=== PATIENT | female | born 1975 | race Caucasian/White ===

== ENCOUNTER 2017-07-07 13:39 | Emergency (ER) | payer MEDICAID, OTHER ==
[2017-07-07 14:11] VITALS: BP 128/84; PULSE 92; RESP 18; TEMP 98.6; O2SAT 99; BMI 25.1
[2017-07-07 14:44] LABS: URINE BILIRUBIN NEGATIVE (NEGATIVE); URINE BLOOD LARGE (NEGATIVE); URINE GLUCOSE (UA) NEGATIVE (NEGATIVE); URINE LEUKOCYTE ESTERASE NEGATIVE Leu/uL (NEGATIVE); URINE PROTEIN 30 mg/dL (<30 mg/dL); URINE UROBILINOGEN 0.2 E.U./dL (<1 E.U./dL)
[2017-07-07 14:46] LABS: URINE APPEARANCE SL CLOUDY (CLEAR); URINE COLOR YELLOW (YELLOW)
[2017-07-07 14:52] LABS: HCG,QUALITATIVE URINE POSITIVE (NEGATIVE); URINE BACTERIA MOD (NEG); URINE RBC 20 - 25 /hpf (0-2)
[2017-07-07 14:56] LABS: BASO # 0.02 K/mm3 (0.0-2.0); BASO % 0.2 % (0.0-3.0); EOS # 0.1 (0.0-0.7); EOS % 0.7 % (1.5-5.0); GRAN # 6.3 (1.4-6.5); GRAN % 69.6 % (50.0-68.0); LYMPH # 2.2 (1.2-3.4); LYMPH % 24.4 % (22.0-35.0); MEAN CELL VOLUME 87.2 fl (80.0-105.0); MEAN CORPUSCULAR HEMOGLOBIN 29.3 pg (25.0-35.0); MEAN CORPUSCULAR HGB CONC 33.5 g/dl (31.0-37.0); MEAN PLATELET VOLUME 11.7 fl (7.0-11.0); MONO # 0.5 (0.1-0.6); MONO % 5.1 % (1.0-6.0); RBC 3.76 10^6/uL (3.5-6.1); RED CELL DISTRIBUTION WIDTH 16.3 % (11.5-14.5); WHITE BLOOD COUNT 9.1 10^3/ul (4.5-11.0)
[2017-07-07 15:10] LABS: ALB/GLOB RATIO 1.3 (1.1-1.8); ALBUMIN 4.7 g/dL (3.0-4.8); ALT/SGPT 22 U/L (7-56); AST/SGOT 20 U/L (14-36); BLOOD UREA NITROGEN 14 mg/dL (7-21); CALCIUM 9.8 mg/dL (8.4-10.5); GFR AFRICAN-AMERICAN > 60; GFR NON-AFRICAN AMERICAN > 60
--- NOTE | 2017-07-07 15:25 | ED PDOC ---
Arrival/HPI - General Chief Complaint: Female Genitourinary Time Seen by Provider: 07/07/17 14:22 Historian: Patient - History of Present Illness Narrative History of Present Illness (Text): 07/07/17 15:22 42yr old female A3 presents today with lower abdominal cramping and vaginal spotting x 2 days. pt states she has + test at home 1 month ago. pt states she has f/u with CLINICAL EDITOR on 07/11/17. pt states she noticed a brownish discharge when she wipes. pt c/o slight lower abdominal cramping which she describes "like period cramps" pt denies back pain, denies urinary symptoms. no cp or sob. no vomiting/diarrhea. no nausea. no other complaints. Time/Duration: Other (2 days) Symptom Onset: Gradual Symptom Course: Unchanged Quality: Cramping Severity Level: 2 Past Medical History - Provider Review Nursing Documentation Reviewed: Yes - Travel History Have you recently traveled outside [place] w/in the past 3 mons?: No - Infectious Disease Hx of Infectious Diseases: None - Reproductive Menopause: No - Past Medical History Past Medical History: No Previous - Psychiatric Hx Depression: No Hx Emotional Abuse: No Hx Physical Abuse: No Hx Substance Use: No (CANNABIS QUIT) - Surgical History Hx Orthopedic Surgery: Yes (L HAND) - Anesthesia Hx Anesthesia: No Hx Anesthesia Reactions: No Hx Malignant Hyperthermia: No - Suicidal Assessment Feels Threatened In Home Enviroment: No Family/Social History - Physician Review Nursing Documentation Reviewed: Yes Family/Social History: Unknown Family HX Smoking Status: Current Some Days Smoker Hx Alcohol Use: No Hx Substance Use: No (CANNABIS QUIT) Allergies/Home Meds Allergies/Adverse Reactions: Allergies No Known Allergies Allergy (Verified 03/25/13 15:51) Review of Systems - Review of Systems Constitutional: absent: Fatigue, Fevers Respiratory: absent: SOB, Cough Cardiovascular: absent: Chest Pain, Palpitations Gastrointestinal: Abdominal Pain. absent: Constipation, Diarrhea, Nausea, Vomiting Genitourinary Female: Vaginal Bleeding. absent: Dysuria, Frequency, Hematuria, Vaginal Discharge Musculoskeletal: absent: Arthralgias, Back Pain, Neck Pain Skin: absent: Rash, Pruritis Neurological: absent: Headache, Dizziness Psychiatric: absent: Anxiety, Depression Physical Exam Vital Signs Reviewed: Yes Vital Signs Temp Pulse Resp BP Pulse Ox 07/07/17 14:02 98.6 F 92 H 18 128/84 99 07/07/17 13:39 98.6 F 92 H 18 128/84 99 Temperature: Afebrile Blood Pressure: Normal Pulse: Regular Respiratory Rate: Normal Appearance: Positive for: Well-Appearing, Non-Toxic, Comfortable Pain Distress: None Mental Status: Positive for: Alert and Oriented X 3 - Systems Exam Head: Present: Atraumatic Mouth: Present: Moist Mucous Membranes Neck: Present: Normal Range of Motion Respiratory/Chest: Present: Clear to Auscultation, Good Air Exchange. No: Respiratory Distress, Accessory Muscle Use Cardiovascular: Present: Regular Rate and Rhythm, Normal S1, S2. No: Murmurs Abdomen: Present: Normal Bowel Sounds. No: Tenderness, Distention, Peritoneal Signs, Rebound, Guarding Genitourinary/Pelvic Exam: Present: Normal External Genitalia, Vaginal Bleeding (minimal brown discharge noted), Cervical os Closed, Other (chaparoned by ER MALIK mcgregor). No: Vaginal Discharge, Vaginal Lesions, Adenexal Tenderness, Adenexal Mass, Cervical Motion Tendernes Back: Present: Normal Inspection. No: CVA Tenderness, Midline Tenderness, Paraspinal Tenderness Upper Extremity: Present: Normal ROM Lower Extremity: Present: Normal ROM. No: Edema Neurological: Present: GCS=15, Speech Normal Skin: Present: Warm, Dry, Normal Color. No: Rashes Psychiatric: Present: Alert, Oriented x 3 Medical Decision Making ED Course and Treatment: 07/07/17 15:25 Patient is nontoxic well appearing in no distress. vital signs are stable. CBC: wnl CMP: k;3.5 Beta hC TYPE AND SCREEN: AB+ Urinalysis: + blood Ultrasound:FINDINGS: UTERUS: Measures 8.7 x 4.8 x 6.2 cm. Normal in size and appearance. No fibroid or other mass lesion seen. ENDOMETRIUM: Funmi there is intrauterine gestational sac measures 2.55 x 1.4 x 2.9 centimeter corresponding to gestational age of 6 weeks 6 days. There is a pole noted with CLL measures 0.85 centimeter corresponding to gestational age of 6 weeks 6 days. No heart activity appreciated in this study. CERVIX: No cervical abnormality identified. RIGHT OVARY: Measures 3 x 1.6 x 1.45 cm. No solid mass. Normal flow. LEFT OVARY: Measures 2.5 x 1.6 x 1.7 cm. No solid mass. Normal flow. FREE FLUID: No significant free fluid noted. OTHER FINDINGS: None. IMPRESSION: Intrauterine gestational sac contains pole. No heart activity is appreciated in this study. The ultrasound estimated gestational age is 7 weeks 1 day 0 weeks 3 days. Correlation with beta HCG level is suggested. Discussed all the results the patient. pt states she has appointment with ob/ parcel carrier on july 11 in 4 days. advised patient of no heart beat on US. stressed importance of f/u with parcel carrier and repeat beta hcg in 2 days. advised f/u with the parcel carrier within the next 2 days. advised immediate return if symptoms worsen,persist or if new symptoms develop. Patient verbalizes understanding of discharge instructions and need for immediate followup. all aspects of this case were discussed the attending of record. Impression:threatened Tylenol every 4 hours as needed for pain Increase fluids Followup with the technologies division chair within the next 2 days Return immediately if symptoms worsen persist or if new symptoms develop: High fevers, heavy bleeding, severe abdominal pain, vomiting, diarrhea, dizziness or weakness or any other concerning symptoms develop. Repeat Beta HCG in 2 days. - Lab Interpretations Lab Results: 07/07/17 14:35 07/07/17 14:35 Lab Results 07/07/17 14:35: WBC 9.1, RBC 3.76, Hgb 11.0 L, Hct 32.8 L, MCV 87.2, MCH 29.3, MCHC 33.5, RDW 16.3 H, Plt Count 230, MPV 11.7 H, Gran % 69.6 H, Lymph % (Auto) 24.4, [place] % (Auto) 5.1, Eos % (Auto) 0.7 L, Baso % (Auto) 0.2, Gran # 6.30, Lymph # (Auto) 2.2, Norman # (Auto) 0.5, Eos # (Auto) 0.1, Baso # (Auto) 0.02 07/07/17 14:35: Blood Type AB POSITIVE, Antibody Screen Negative, BBK History Checked Patient has bt 07/07/17 14:35: Beta HCG, Quant 6742.60 H 07/07/17 14:35: Sodium 143, Potassium 3.5 L, Chloride 108 H, Carbon Dioxide 21, Anion Gap 17, BUN 14, Creatinine 0.5 L, Est GFR ( Amer) > 60, Est GFR ( Non-Af Amer) > 60, Random Glucose 73, Calcium 9.8, Total Bilirubin 0.7, AST 20, ALT 22, Alkaline Phosphatase 61, Total Protein 8.2, Albumin 4.7, Globulin 3.5, Albumin/Globulin Ratio 1.3 07/07/17 14:30: Urine Color Yellow, Urine Appearance Sl cloudy, Urine pH 6.0, Ur Specific [place] >= 1.030, Urine Protein 30 H, Urine Glucose (UA) Negative, Urine Ketones 15 H, Urine Blood Large H, Urine Nitrate Negative, Urine Bilirubin Negative, Urine Urobilinogen 0.2, Ur Leukocyte Esterase Negative, Urine RBC 20 - 25, Urine WBC 10 - 15, Ur Epithelial Cells 10 - 12, Urine Bacteria Mod, Urine HCG, Qual Positive - RAD Interpretation Radiology Orders: 07/07/17 14:22 OB TRANSVAGINAL [US] Stat Disposition/Present on Arrival - Present on Arrival Any Indicators Present on Arrival: No History of DVT/PE: No History of Uncontrolled Diabetes: No Urinary Catheter: No History of Decub. Ulcer: No History Surgical Site Infection Following: None - Disposition Have Diagnosis and Disposition been Completed?: Yes Diagnosis: Threatened Disposition: HOME/ ROUTINE Disposition Time: 16:33 Patient Plan: Discharge Condition: GOOD Discharge Instructions (ExitCare): Threatened Miscarriage (DC) Additional Instructions: Tylenol every 4 hours as needed for pain Increase fluids Followup with the technologies division chair within the next 2 days Return immediately if symptoms worsen persist or if new symptoms develop: High fevers, heavy bleeding, severe abdominal pain, vomiting, diarrhea, dizziness or weakness or any other concerning symptoms develop. Repeat Beta HCG in 2 days. Prescriptions: Multivit/Folic Acid/I [ Plus] 1 tab PO DAILY #30 tab Referrals: Ana Maria Avalos MD [Staff Provider] - [facility] - Follow up with primary Forms: [place] ([place]), WORK NOTE
--- NOTE | 2017-07-07 16:33 | US ---
HISTORY: pain. Vaginal spotting COMPARISON: No related prior exam available for comparison. The patient has ultrasound in previous dated 03/25/2013 TECHNIQUE: Transabdominal and endovaginal ultrasound examination of the pelvis was performed. FINDINGS: UTERUS: Measures 8.7 x 4.8 x 6.2 cm. Normal in size and appearance. No fibroid or other mass lesion seen. ENDOMETRIUM: Funmi there is intrauterine gestational sac measures 2.55 x 1.4 x 2.9 centimeter corresponding to gestational age of 6 weeks 6 days. There is a pole noted with CLL measures 0.85 centimeter corresponding to gestational age of 6 weeks 6 days. No heart activity appreciated in this study. CERVIX: No cervical abnormality identified. RIGHT OVARY: Measures 3 x 1.6 x 1.45 cm. No solid mass. Normal flow. LEFT OVARY: Measures 2.5 x 1.6 x 1.7 cm. No solid mass. Normal flow. FREE FLUID: No significant free fluid noted. OTHER FINDINGS: None. IMPRESSION: Intrauterine gestational sac contains pole. No heart activity is appreciated in this study. The ultrasound estimated gestational age is 7 weeks 1 day 0 weeks 3 days. Correlation with beta HCG level is suggested.
== END 2017-07-07 16:33 | disposition home or self-care (01) ==
LOC: ED 13:39
DX: O20.0 Threatened abortion (principal); Z3A.01 Less than 8 weeks gestation of pregnancy

== ENCOUNTER 2017-07-14 20:44 | Emergency (ER) | payer MEDICAID ==
[2017-07-14 20:45] VITALS: BMI 25.1
--- NOTE | 2017-07-14 20:51 | ED PDOC ---
Arrival/HPI <Kodak Villalba - Last Filed: 07/15/17 01:30> - General Historian: Patient <Price Marvin - Last Filed: 07/15/17 01:45> - General Time Seen by Provider: 07/14/17 20:45 - History of Present Illness Narrative History of Present Illness (Text): 07/14/17 20:49 42 y/o female, , approx. 7 weeks ?, c/o passing a clot of tissue with lower pelvic cramp x 1 day. Pt. stated that she's been told that she had miscarriage on 07/07/2017 approx. 7 weeks, been having cramp at home and passing the tissue tonight, no fever or chills, no urinary symptoms, no night sweat, no active bleeding currently, no other medical or psychological complaints. (Price Marvin) Past Medical History - Provider Review Nursing Documentation Reviewed: Yes - Infectious Disease Hx of Infectious Diseases: None - Past Medical History Past Medical History: No Previous - Psychiatric Hx Depression: No Hx Emotional Abuse: No Hx Physical Abuse: No Hx Substance Use: No (CANNABIS QUIT) - Surgical History Hx Orthopedic Surgery: Yes (L HAND) - Anesthesia Hx Anesthesia: No Hx Anesthesia Reactions: No Hx Malignant Hyperthermia: No - Suicidal Assessment Feels Threatened In Home Enviroment: No <Price Marvin - Last Filed: 07/15/17 01:45> Family/Social History - Physician Review Nursing Documentation Reviewed: Yes Family/Social History: Unknown Family HX Smoking Status: Current Some Days Smoker Hx Alcohol Use: No Hx Substance Use: No (CANNABIS QUIT) <Price Marvin - Last Filed: 07/15/17 01:45> Allergies/Home Meds <Kodak Villalba - Last Filed: 07/15/17 01:30> <Price Marvin - Last Filed: 07/15/17 01:45> Allergies/Adverse Reactions: Allergies No Known Allergies Allergy (Verified 03/25/13 15:51) Review of Systems - Review of Systems Constitutional: absent: Fatigue, Fevers Eyes: absent: Vision Changes ENT: absent: Hearing Changes Respiratory: absent: SOB, Cough Cardiovascular: absent: Chest Pain Gastrointestinal: absent: Abdominal Pain, Nausea, Vomiting Genitourinary Female: Vaginal Bleeding. absent: Dysuria, Frequency, Hematuria, Urine Output Changes, Vaginal Discharge Musculoskeletal: absent: Arthralgias, Back Pain Skin: absent: Rash, Pruritis, Skin Lesions Neurological: absent: Headache, Dizziness Hemo/Lymphatic: absent: Adenopathy Psychiatric: absent: Anxiety, Depression, Suicidal Ideation <Price Marvin - Last Filed: 07/15/17 01:45> Physical Exam Pain Distress: Mild - Systems Exam Head: Present: Atraumatic, Normocephalic Pupils: Present: PERRL Extroacular Muscles: Present: EOMI Conjunctiva: Present: Normal Mouth: Present: Moist Mucous Membranes Neck: Present: Normal Range of Motion Respiratory/Chest: Present: Clear to Auscultation, Good Air Exchange. No: Respiratory Distress, Accessory Muscle Use Cardiovascular: Present: Regular Rate and Rhythm, Normal S1, S2. No: Murmurs Abdomen: Present: Normal Bowel Sounds. No: Tenderness, Distention, Peritoneal Signs, Rebound, Guarding Genitourinary/Pelvic Exam: Present: Normal External Genitalia, Cervical os Closed, Other (Female Data Integrity Consultant: ER Staff Aleyda Grady. ). No: Vaginal Discharge, Vaginal Bleeding, Vaginal Lesions, Adenexal Tenderness, Adenexal Mass , Cervical Motion Tendernes, Odor Back: Present: Normal Inspection Upper Extremity: Present: Normal Inspection. No: Cyanosis, Edema Lower Extremity: Present: Normal Inspection. No: Edema Neurological: Present: GCS=15, CN II-XII Intact, Speech Normal, Motor Func Grossly Intact, Gait Normal, Memory Normal Skin: Present: Warm, Dry, Normal Color. No: Rashes Psychiatric: Present: Alert, Oriented x 3, Normal Insight, Normal Concentration <Price Marvin - Last Filed: 07/15/17 01:45> Vital Signs Temp Pulse Resp BP Pulse Ox 07/14/17 21:30 98.4 F 59 L 18 119/78 100 Medical Decision Making <Kodak Villalba - Last Filed: 07/15/17 01:30> - RAD Interpretation Heel Scorer: Radiologist <Price Marvin - Last Filed: 07/15/17 01:45> ED Course and Treatment: 07/14/17 21:54 -labs/ua/type and screen/betahcg -transvaginal sonogram -IVF/tylenol -observe and reassess 07/15/17 01:44 -Urine hcg is positive -Sonogram show: Findings compatible with spontaneous . Thickened, heterogeneous endometrium. RPOC not excluded. Ovarian cysts. -Blood type is AB+ -Labs are non-significant except hgb 9.8 -Beta hcg 657 from 6742 -UA show +UTI, macrobid ordered. -Pt. has obgyn to follow up today for follow up, case discussed with dr. villalba about the labs/radiology result and agreed on the discharge and follow up with obgyn today. -Pt. feels well, asymptomatic, no active bleeding or pain. -Discharge home with tylenol, macrobid, bed rest, follow up with the obgyn today as you scheduled, return to the ER for any new or worsening signs or symptoms. (Price Marvin) - Lab Interpretations Lab Results: 07/14/17 22:45 Lab Results 07/15/17 00:35: Beta HCG, Quant 657.94 H 07/14/17 23:05: Urine Color Yellow, Urine Appearance Cloudy, Urine pH 6.5, Ur Specific [place] 1.025, Urine Protein 30 H, Urine Glucose (UA) Negative, Urine Ketones Trace H, Urine Blood Large H, Urine Nitrate Negative, Urine Bilirubin Negative, Urine Urobilinogen 1.0 H, Ur Leukocyte Esterase Trace H, Urine RBC Tntc, Urine WBC 1 - 3, Ur Epithelial Cells 0 - 2, Urine Bacteria Rare 07/14/17 22:45: WBC 8.9, RBC 3.39 L, Hgb 9.8 L, Hct 30.0 L, MCV 88.5, MCH 28.9, MCHC 32.7, RDW 16.5 H, Plt Count 196, MPV 12.3 H, Gran % 42.3 L, Lymph % (Auto) 50.1 H, [place] % (Auto) 5.5, Eos % (Auto) 1.9, Baso % (Auto) 0.2, Gran # 3.78, Lymph # (Auto) 4.5 H, [place] # (Auto) 0.5, Eos # (Auto) 0.2, Baso # (Auto) 0.02 - RAD Interpretation Radiology Orders: 07/14/17 21:49 OB TRANSVAGINAL [US] Stat Gestation: No intrauterine gestational sac. Uterus/cervix: Endometrium: Up to 2.0 cm in thickness, heterogeneous without internal vascularity. Closed cervix. Ovaries: RIGHT ovary: 1.2 x 1.1 x 0.8 cm anechoic lesion. LEFT ovary: 1.8 x 1.3 x 1.7 cm anechoic lesion. No adnexal masses. Free fluid: No significant free fluid. IMPRESSION: 1. Findings compatible with spontaneous . 2. Thickened, heterogeneous endometrium. RPOC not excluded. 3. Ovarian cysts. Thank you for allowing us to participate in the care of your patient. Dictated and Authenticated by: Nicolás Santana MD 07/15/2017 12:06 AM Eastern Time ([place] & [place]) (Price Marvin) - Medication Orders Current Medication Orders: Discontinued Medications Acetaminophen (Tylenol 325mg Tab) 650 mg PO STAT STA Stop: 07/14/17 21:50 Last Admin: 07/14/17 23:00 Dose: 650 mg Sodium Chloride (Sodium Chloride 0.9%) 1,000 mls @ 999 mls/hr IV .Q1H1M STA Stop: 07/14/17 22:49 Last Admin: 07/14/17 22:58 Dose: 999 mls/hr eMAR Start Stop Document 07/14/17 22:58 GMD (Rec: 07/14/17 23:00 GMD [id number]) Intravenous Solution Start Date 07/14/17 Start Time 23:00 End Date 07/15/17 End time 00:00 Total Infusion Time 60 Nitrofurantoin Macrocrystals (Macrobid) 100 mg PO STAT STA PRN Reason: Protocol Stop: 07/15/17 00:33 - PA / STERILIZER MACHINE OPERATOR / Resident Statement LUDWIG has reviewed & agrees with the documentation as recorded. <Kodak Villalba - Last Filed: 07/15/17 01:30> - PA / STERILIZER MACHINE OPERATOR / Resident Statement LUDWIG has reviewed & agrees with the documentation as recorded. <Price Marvin - Last Filed: 07/15/17 01:45> Disposition/Present on Arrival <Kodak Villalba - Last Filed: 07/15/17 01:30> - Present on Arrival Any Indicators Present on Arrival: No History of DVT/PE: No History of Uncontrolled Diabetes: No Urinary Catheter: No History of Decub. Ulcer: No History Surgical Site Infection Following: None - Disposition Have Diagnosis and Disposition been Completed?: Yes Disposition Time: 00:28 Patient Plan: Discharge <Price Marvin - Last Filed: 07/15/17 01:45> - Disposition Diagnosis: Miscarriage, UTI (urinary tract infection) Disposition: HOME/ ROUTINE Patient Problems: Current Active Problems Problem Status Onset Miscarriage Acute UTI (urinary tract infection) Acute Condition: GOOD Additional Instructions: -Discharge home with tylenol, macrobid, bed rest, follow up with the obgyn today as you scheduled, return to the ER for any new or worsening signs or symptoms. . Prescriptions: Acetaminophen [Tylenol 325mg tab] 2 tab PO QID PRN #30 tab PRN Reason: Other Nitrofurantoin Macrocrystals [Macrobid] 100 mg PO BID #14 cap Referrals: Juan Diego Morris, [Primary Care Provider] - Follow up with primary King Jones [Medical Doctor] - Follow up with primary Forms: WORK NOTE
[2017-07-14 22:57] VITALS: RESP 18
[2017-07-14] MEDS: Sodium Chloride 0.9% 1,000 ML IV STA (22:58)
[2017-07-14 23:30] LABS: BASO # 0.02 K/mm3 (0.0-2.0); BASO % 0.2 % (0.0-3.0); EOS # 0.2 (0.0-0.7); EOS % 1.9 % (1.5-5.0); GRAN # 3.78 (1.4-6.5); GRAN % 42.3 % (50.0-68.0); HEMOGLOBIN 9.8 g/dL (12.0-16.0); LYMPH # 4.5 (1.2-3.4); LYMPH % 50.1 % (22.0-35.0); MEAN CELL VOLUME 88.5 fl (80.0-105.0); MEAN CORPUSCULAR HEMOGLOBIN 28.9 pg (25.0-35.0); MEAN CORPUSCULAR HGB CONC 32.7 g/dl (31.0-37.0); MEAN PLATELET VOLUME 12.3 fl (7.0-11.0); MONO # 0.5 (0.1-0.6); MONO % 5.5 % (1.0-6.0); RBC 3.39 10^6/uL (3.5-6.1); RED CELL DISTRIBUTION WIDTH 16.5 % (11.5-14.5); WHITE BLOOD COUNT 8.9 10^3/ul (4.5-11.0)
[2017-07-14 23:32] LABS: PH,URINE 6.5 (4.7-8.0); URINE BILIRUBIN NEGATIVE (NEGATIVE); URINE BLOOD LARGE (NEGATIVE); URINE GLUCOSE (UA) NEGATIVE (NEGATIVE); URINE LEUKOCYTE ESTERASE TRACE Leu/uL (NEGATIVE); URINE PROTEIN 30 mg/dL (<30 mg/dL)
[2017-07-14 23:34] LABS: URINE APPEARANCE CLOUDY (CLEAR); URINE COLOR YELLOW (YELLOW)
[2017-07-14 23:42] LABS: URINE BACTERIA RARE (NEG); URINE EPITHELIAL CELLS 0 - 2 /hpf (0-5); URINE RBC TNTC /hpf (0-2)
--- NOTE | 2017-07-15 00:06 | US ---
EXAM: US First Trimester, Transabdominal CLINICAL HISTORY: 42 years old, female; Pain; complicated by abdominal or pelvic pain; Lower; First trimester; Gestational age or lmp: ; ; Additional info: Complete ? TECHNIQUE: Real-time transabdominal obstetrical ultrasound of the maternal pelvis and a first trimester with image documentation. COMPARISON: No relevant prior studies available. FINDINGS: Gestation: No intrauterine gestational sac. Uterus/cervix: Endometrium: Up to 2.0 cm in thickness, heterogeneous without internal vascularity. Closed cervix. Ovaries: RIGHT ovary: 1.2 x 1.1 x 0.8 cm anechoic lesion. LEFT ovary: 1.8 x 1.3 x 1.7 cm anechoic lesion. No adnexal masses. Free fluid: No significant free fluid. IMPRESSION: 1. Findings compatible with spontaneous . 2. Thickened, heterogeneous endometrium. RPOC not excluded. 3. Ovarian cysts.
[2017-07-15 01:47] LABS: ALB/GLOB RATIO 1.2 (1.1-1.8); ALBUMIN 3.6 g/dL (3.0-4.8); ALT/SGPT 26 U/L (7-56); AST/SGOT 25 U/L (14-36); BLOOD UREA NITROGEN 13 mg/dL (7-21); GFR AFRICAN-AMERICAN > 60; GFR NON-AFRICAN AMERICAN > 60
[2017-07-15] MEDS: Sodium Chloride 0.9% 1,000 ML IV STA (02:06)
[2017-07-15 02:09] VITALS: BP 116/70; PULSE 60; TEMP 98.2; O2SAT 99
== END 2017-07-15 02:11 | disposition home or self-care (01) ==
LOC: ED 20:44
DX: O03.88 Urinary tract infection following complete or unspecified spontaneous abortion (principal)
CPT/HCPCS: 76817; 80053; 81001; 84702; 85025; 86850; 86900; 87086; 96360; 96361; 99285; J7040

== ENCOUNTER 2017-08-02 20:23 | Inpatient (IN) | payer MEDICAID ==
[2017-08-02 20:48] VITALS: BMI 26.2
--- NOTE | 2017-08-02 21:09 | ED PDOC ---
Arrival/HPI - General Historian: Patient - General Chief Complaint: Dental Pain Time Seen by Provider: 08/02/17 21:00 - History of Present Illness Narrative History of Present Illness (Text): 08/02/17 21:08 42yo female with no Past medical history who present with left sided facial swelling. Notes that she have a cracked left upper lateral incisor yesterday and started having pain to the area yesterday. Noted left sided facial swelling this afternoon, that became increasingly worse. States it became harder to open her left eye. Denied fever, chills, nausea, vomiting, visual changes, any other complaint. (Florin Sandra A) Past Medical History - Provider Review Nursing Documentation Reviewed: Yes - Infectious Disease Hx of Infectious Diseases: None - Past Medical History Past Medical History: No Previous - Cardiac Hx Cardiac Disorders: No - Pulmonary Hx Respiratory Disorders: No - Neurological Hx Neurological Disorder: No - HEENT Hx HEENT Disorder: No - Renal Hx Renal Disorder: No - Endocrine/Metabolic Hx Endocrine Disorders: No - Hematological/Oncological Hx Blood Disorders: No - Integumentary Hx Dermatological Disorder: No - Musculoskeletal/Rheumatological Hx Musculoskeletal Disorders: No - Gastrointestinal Hx Gastrointestinal Disorders: No - Genitourinary/Gynecological Hx Genitourinary Disorders: Yes Other/Comment: Miscarriage 07/14/2017 - Psychiatric Hx Depression: No Hx Emotional Abuse: No Hx Physical Abuse: No Hx Substance Use: No (CANNABIS QUIT) - Surgical History Hx Orthopedic Surgery: Yes (L HAND) - Anesthesia Hx Anesthesia: No Hx Anesthesia Reactions: No Hx Malignant Hyperthermia: No - Suicidal Assessment Feels Threatened In Home Enviroment: No Family/Social History - Physician Review Nursing Documentation Reviewed: Yes Family/Social History: Unknown Family HX Smoking Status: Current Some Days Smoker Hx Alcohol Use: No Hx Substance Use: No (CANNABIS QUIT) Allergies/Home Meds Allergies/Adverse Reactions: Allergies vancomycin Adverse Reaction (Verified 08/02/17 23:50) ITCHING Review of Systems - Physician Review All systems were reviewed & negative as marked: Yes - Review of Systems Constitutional: Normal Eyes: Normal ENT: Other (Left toothache. Left facial swelling) Respiratory: Normal Cardiovascular: Normal Gastrointestinal: Normal Genitourinary Female: Normal Musculoskeletal: Normal Skin: Normal Neurological: Normal Endocrine: Normal Hemo/Lymphatic: Normal Psychiatric: Normal Physical Exam Vital Signs Reviewed: Yes Temperature: Afebrile Blood Pressure: Normal Pulse: Regular Respiratory Rate: Normal Appearance: Positive for: Well-Appearing, Non-Toxic, Comfortable Pain Distress: None Mental Status: Positive for: Alert and Oriented X 3 - Systems Exam Head: Present: Atraumatic, Normocephalic Pupils: Present: PERRL Extroacular Muscles: Present: EOMI, Other (Left infraorbital area swelling and erythema noted) Conjunctiva: Present: Normal, Other Mouth: Present: Moist Mucous Membranes. No: Normal Teeth (Avulsed left upper lateral incisor noted with overlaying left maxillary swelling with overlaying erythema) Neck: Present: Normal Range of Motion Respiratory/Chest: Present: Clear to Auscultation, Good Air Exchange. No: Respiratory Distress, Accessory Muscle Use Cardiovascular: Present: Regular Rate and Rhythm, Normal S1, S2. No: Murmurs Abdomen: No: Tenderness, Distention, Peritoneal Signs Back: Present: Normal Inspection Upper Extremity: Present: Normal Inspection. No: Cyanosis, Edema Lower Extremity: Present: Normal Inspection. No: Edema Neurological: Present: GCS=15, CN II-XII Intact, Speech Normal Skin: Present: Warm, Dry, Normal Color. No: Rashes Psychiatric: Present: Alert, Oriented x 3, Normal Insight, Normal Concentration Vital Signs Temp Pulse Resp BP Pulse Ox 08/02/17 20:50 99.7 F H 73 18 128/88 99 Medical Decision Making ED Course and Treatment: 08/03/17 17:38 Pt presented with facial cellulites, low grade temp and leukocytosis. She was admitted for IV abx. Case was DW Dr. Cheema and she [facility] - Lab Interpretations Microbiology Results: Microbiology Results 08/02/17 21:34 Blood-Venous Blood Culture - Preliminary NO GROWTH AFTER 48 HOURS 08/02/17 21:10 Blood-Venous Blood Culture - Preliminary NO GROWTH AFTER 48 HOURS Lab Results: 08/02/17 21:34 Lab Results 08/02/17 21:34: PT 12.1, INR 1.06, APTT 21.5 L 08/02/17 21:34: WBC 11.4 H D, RBC 3.62, Hgb 10.3 L, Hct 31.7 L, MCV 87.6, MCH 28.5, MCHC 32.5, RDW 16.0 H, Plt Count 331, MPV 12.2 H, Gran % 69.4 H, Lymph % ( Auto) 22.5, [place] % (Auto) 7.6 H, Eos % (Auto) 0.3 L, Baso % (Auto) 0.2, Gran # 7.92 H, Lymph # (Auto) 2.6, [place] # (Auto) 0.9 H, Eos # (Auto) 0.0, Baso # (Auto ) 0.02 - Medication Orders Current Medication Orders: Discontinued Medications Acetaminophen (Tylenol 325mg Tab) 650 mg PO Q6H PRN PRN Reason: Pain, Mild (1-3) Diphenhydramine HCl (Benadryl) 25 mg IVP STAT STA Stop: 08/02/17 23:28 Last Admin: 08/02/17 23:49 Dose: 25 mg IVP Administration Document 08/02/17 23:49 KT (Rec: 08/02/17 23:49 KT [id number]) Charges for Administration # of IVP Administrations 1 Ceftriaxone Sodium (Rocephin 1 Gram Ivpb) 1 gm in 100 mls @ 200 mls/hr IVPB STAT STA PRN Reason: Protocol Stop: 08/02/17 22:11 Last Admin: 08/02/17 21:56 Dose: 200 mls/hr eMAR Start Stop Document 08/02/17 21:56 MS (Rec: 08/02/17 21:56 [email or web address]) Intravenous Solution Start Date 08/02/17 Start Time 21:56 End Date 08/02/17 End time 22:26 Total Infusion Time 30 Vancomycin HCl (Vancomycin 1gm) 1 gm in 250 mls @ 167 mls/hr IVPB STAT STA PRN Reason: Protocol Stop: 08/02/17 23:10 Last Admin: 08/02/17 22:44 Dose: 167 mls/hr eMAR Start Stop Document 08/02/17 22:44 MS (Rec: 08/02/17 22:44 MS [email or web address]) Intravenous Solution Start Date 08/02/17 Start Time 22:44 Ampicillin Sodium/Sulbactam (Sodium 3 gm/ Sodium Chloride) 100 mls @ 200 mls/ hr IVPB Q6 DIAMOND PRN Reason: Protocol Last Admin: 08/03/17 12:15 Dose: 200 mls/hr eMAR Start Stop Document 08/03/17 12:15 KRISTAL (Rec: 08/03/17 12:16 KRISTAL [id number]) Intravenous Solution Start Date 08/03/17 Start Time 12:16 Ibuprofen (Motrin Tab) 400 mg PO Q4H PRN PRN Reason: Pain, moderate (4-7) Last Admin: 08/03/17 13:00 Dose: 400 mg MAR Pain/Vitals Document 08/03/17 13:00 KRISTAL (Rec: 08/03/17 13:01 KRISTAL [id number] Pain Reassessment Is This A Pain ReAssessment? No Presence of Pain Presence of Pain Yes Pain Scale Used Pain Scale Used Numeric Location Left, Right or Bilateral Left Pain Location Body Site Face Description Throbbing Intensity 4 Scale Used Numeric Site Observation Swelling Ketorolac Tromethamine (Toradol) 15 mg IVP Q6H PRN PRN Reason: Pain, severe (8-10) Morphine Sulfate (Morphine) 4 mg IVP STAT STA Stop: 08/02/17 21:43 Last Admin: 08/02/17 21:55 Dose: 4 mg MAR Pain Assessment Document 08/02/17 21:55 MS (Rec: 08/02/17 21:56 MS [email or web address] Pain Reassessment Is this a pain reassessment? No Sleep Is patient sleeping during reassessment? No Presence of Pain Presence of Pain Yes Pain Scale Used Pain Scale Used Numeric Location Left, Right or Bilateral Left Pain Location Body Site Face Description Description Constant Intensity of Pain at present 10 Pain Behavior Moaning Crying Grasping Site Rubbing Site IVP Administration Document 08/02/17 21:55 MS (Rec: 08/02/17 21:56 MS [email or web address]) Charges for Administration # of IVP Administrations 1 Ondansetron HCl (Zofran Inj) 4 mg IVP Q4H PRN PRN Reason: Nausea/Vomiting Pantoprazole Sodium (Protonix Ec Tab) 20 mg PO 0600 DIAMOND Last Admin: 08/03/17 05:42 Dose: 20 mg Potassium Chloride (K-Dur 20 Meq Er Tab) 40 meq PO ONCE ONE Stop: 08/03/17 13:53 Last Admin: 08/03/17 14:17 Dose: 40 meq Disposition/Present on Arrival - Present on Arrival Any Indicators Present on Arrival: No History of DVT/PE: No History of Uncontrolled Diabetes: No Urinary Catheter: No History of Decub. Ulcer: No History Surgical Site Infection Following: None - Disposition Have Diagnosis and Disposition been Completed?: Yes Disposition Time: 22:00 - Disposition Diagnosis: Facial cellulitis Disposition: HOSPITALIZED Condition: FAIR
[2017-08-02] MEDS ORDERED: Vancomycin 1gm in NS 250ml 1 GM/250 ML BAG IVPB STA (21:41)
[2017-08-02] MEDS ORDERED: cefTRIAXone 1 gm 1 GM/100 ML BAG IVPB STA (21:42)
[2017-08-02 21:54] LABS: BASO # 0.02 K/mm3 (0.0-2.0); BASO % 0.2 % (0.0-3.0); EOS % 0.3 % (1.5-5.0); GRAN # 7.92 (1.4-6.5); GRAN % 69.4 % (50.0-68.0); HEMOGLOBIN 10.3 g/dL (12.0-16.0); LYMPH # 2.6 (1.2-3.4); LYMPH % 22.5 % (22.0-35.0); MEAN CELL VOLUME 87.6 fl (80.0-105.0); MEAN CORPUSCULAR HEMOGLOBIN 28.5 pg (25.0-35.0); MEAN CORPUSCULAR HGB CONC 32.5 g/dl (31.0-37.0); MEAN PLATELET VOLUME 12.2 fl (7.0-11.0); MONO # 0.9 (0.1-0.6); MONO % 7.6 % (1.0-6.0); RBC 3.62 10^6/uL (3.5-6.1); WHITE BLOOD COUNT 11.4 10^3/ul (4.5-11.0)
[2017-08-02 22:00] LABS: INR 1.06 (0.93-1.08); PARTIAL THROMBOPLASTIN TIME 21.5 Seconds (25.1-36.5); PROTHROMBIN TIME 12.1 SECONDS (9.4-12.5)
[2017-08-02] MEDS ORDERED: DiphenhydrAMINE 50 mg/ml Inj IVP STA (23:27)
[2017-08-02 23:32] LABS: ALB/GLOB RATIO 1.3 (1.1-1.8); ALBUMIN 4.2 g/dL (3.0-4.8); ALT/SGPT 27 U/L (7-56); AST/SGOT 17 U/L (14-36); BLOOD UREA NITROGEN 7 mg/dL (7-21); CALCIUM 8.7 mg/dL (8.4-10.5); GFR AFRICAN-AMERICAN > 60; GFR NON-AFRICAN AMERICAN > 60
--- NOTE | 2017-08-02 23:54 | CP.PCM.HP ---
History of Present Illness - History of Present Illness History of Present Illness: Freda Gonzalez, PGY1, H&P for Dr Jean Carlos Cheema: CC: left sided facial swelling 42 year old female with no significant PMH, presents for left sided facial swelling that began last night. Pt states that her left upper tooth partially broke off a month ago. Yesterday night, she started having some pain at the site , and then woke up with left sided facial swelling. Tylenol partially relieves the pain. Denies fever, chills, discharge, neck pain, vision changes. Reports mild headache. In ED, wbc 11.4, given rocephin and vanco in ED. 12 point ROS obtained and neg, except as per HPI PMH: Suicidal ideation (20 years ago) PSH: left arm artery? after suicidal attempt ALl: NKA FH: Mother, DM SH: lives with 5 children. Works as [employer]. Smokes tobacco 3 ciggs/day x 11 years. Prior weed/cannabis user. Social ETOH. Present on Admission - Present on Admission Any Indicators Present on Admission: No History of DVT/PE: No History of Uncontrolled Diabetes: No Urinary Catheter: No Decubitus Ulcer Present: No Review of Systems - Review of Systems All systems: reviewed and no additional remarkable complaints except Review of Systems: as per HPI Past Patient History - Infectious Disease Hx of Infectious Diseases: None - Past Social History Smoking Status: Current Some Days Smoker - CARDIAC Hx Cardiac Disorders: No - PULMONARY Hx Respiratory Disorders: No - NEUROLOGICAL Hx Neurological Disorder: No - HEENT Hx HEENT Problems: No - RENAL Hx Chronic Kidney Disease: No - ENDOCRINE/METABOLIC Hx Endocrine Disorders: No - HEMATOLOGICAL/ONCOLOGICAL Hx Blood Disorders: No - INTEGUMENTARY Hx Dermatological Problems: No - MUSCULOSKELETAL/RHEUMATOLOGICAL Hx Musculoskeletal Disorders: No - GASTROINTESTINAL Hx Gastrointestinal Disorders: No - GENITOURINARY/GYNECOLOGICAL Hx Genitourinary Disorders: Yes Other/Comment: Miscarriage 07/14/2017 - PSYCHIATRIC Hx Depression: No Hx Emotional Abuse: No Hx Physical Abuse: No Hx Substance Use: No (CANNABIS QUIT) - SURGICAL HISTORY Hx Orthopedic Surgery: Yes (L HAND) - ANESTHESIA Hx Anesthesia: No Hx Anesthesia Reactions: No Hx Malignant Hyperthermia: No Meds Allergies/Adverse Reactions: Allergies Allergy/AdvReac Type Severity Reaction Status Date / Time vancomycin AdvReac ITCHING Verified 08/02/17 23:50 Physical Exam - Constitutional Appears: Non-toxic, No Acute Distress - Head Exam Head Exam: NORMOCEPHALIC Additional comments: + left sided facial swelling, no fluctuance/discharge/increased warmth appreciated. Mild erythema noted - Eye Exam Eye Exam: EOMI, PERRL. absent: Conjunctival injection, Nystagmus, Scleral icterus Pupil Exam: NORMAL ACCOMODATION, PERRL. absent: Irregular, Miosis, Unequal - ENT Exam ENT Exam: Mucous Membranes Moist Additional comments: left upper tooth broken, no pus/erythema noted. + swelling with left sided facial swelling and mild erythema - Neck Exam Neck exam: Positive for: Full Rom - Respiratory Exam Respiratory Exam: Clear to Auscultation Bilateral, NORMAL BREATHING PATTERN. absent: Chest Wall Tenderness, Rales, Rhonchi, Wheezes, Stridor - Cardiovascular Exam Cardiovascular Exam: RRR, +S1, +S2. absent: Systolic Murmur - GI/Abdominal Exam GI & Abdominal Exam: Normal Bowel Sounds, Soft. absent: Distended, Firm, Mass, Organomegaly, Rigid, Tenderness - Extremities Exam Extremities exam: Positive for: normal inspection. Negative for: calf tenderness, pedal edema - Back Exam Back exam: NORMAL INSPECTION - Neurological Exam Neurological exam: Alert, Oriented x3 - Psychiatric Exam Psychiatric exam: Normal Affect, Normal Mood - Skin Skin Exam: Dry, Normal Color, Warm Results - Vital Signs Recent Vital Signs: Last Vital Signs Temp 99.7 F H 08/02/17 20:50 Pulse 82 08/02/17 23:12 Resp 16 08/02/17 23:12 BP 132/78 08/02/17 23:12 Pulse Ox 99 08/02/17 23:12 - Labs Result Diagrams: 08/02/17 21:34 08/02/17 23:11 Labs: Laboratory Results - last 24 hr 08/02/17 23:11 Sodium 140 Potassium 3.4 L Chloride 107 Carbon Dioxide 21 Anion Gap 15 BUN 7 Creatinine 0.5 L Est GFR ( Amer) > 60 Est GFR (Non-Af Amer) > 60 Random Glucose 97 Calcium 8.7 Total Bilirubin 0.3 AST 17 ALT 27 Alkaline Phosphatase 63 Total Protein 7.3 Albumin 4.2 Globulin 3.1 Albumin/Globulin Ratio 1.3 Assessment & Plan - Assessment and Plan (Free Text) Assessment: 42 year old female with no significant PMH, presents for left sided facial swelling: Left sided facial swellin/2 likely left tooth infection/abscess - Given Rocephin, Vanco iN ED. Pt had allergic reaction to Vanco (itching). given benadryl. - Started on Unasyn IV 6h - mild leukocytosis - Consider maxillofacial CT if worsening symptoms - procal, blood cx - hgb A1C - Has an appointment outpt with her dentist next week PPX: protonix, scds Reg diet Discussed with Dr Jean Carlos Cheema. - Date & Time Date: 08/03/17 Time: 02:07
[2017-08-03] MEDS ORDERED: Pantoprazole 20 mg EC Tab PO SCH (06:00)
[2017-08-03 07:09] LABS: BASO # 0.02 K/mm3 (0.0-2.0); BASO % 0.2 % (0.0-3.0); EOS # 0.1 (0.0-0.7); EOS % 1.2 % (1.5-5.0); GRAN # 4.37 (1.4-6.5); GRAN % 51.1 % (50.0-68.0); HEMOGLOBIN 8.8 g/dL (12.0-16.0); LYMPH # 3.3 (1.2-3.4); MEAN CELL VOLUME 87.1 fl (80.0-105.0); MEAN CORPUSCULAR HEMOGLOBIN 28.4 pg (25.0-35.0); MEAN CORPUSCULAR HGB CONC 32.6 g/dl (31.0-37.0); MEAN PLATELET VOLUME 10.9 fl (7.0-11.0); MONO # 0.8 (0.1-0.6); MONO % 9.5 % (1.0-6.0); RBC 3.1 10^6/uL (3.5-6.1); RED CELL DISTRIBUTION WIDTH 15.9 % (11.5-14.5); WHITE BLOOD COUNT 8.6 10^3/ul (4.5-11.0)
[2017-08-03 07:43] LABS: ALB/GLOB RATIO 1.3 (1.1-1.8); ALBUMIN 3.8 g/dL (3.0-4.8); ALT/SGPT 19 U/L (7-56); AST/SGOT 15 U/L (14-36); BLOOD UREA NITROGEN 8 mg/dL (7-21); CALCIUM 8.4 mg/dL (8.4-10.5); GFR AFRICAN-AMERICAN > 60; GFR NON-AFRICAN AMERICAN > 60
[2017-08-03 11:24] VITALS: BP 134/81; PULSE 66; RESP 18; TEMP 98; O2SAT 100
[2017-08-03] MEDS ORDERED: Potassium Chloride 20 mEq ER Tab PO ONE (13:52)
--- NOTE | 2017-08-03 16:55 | CP.PCM.DIS ---
Provider - Provider Date of Admission: 08/02/17 21:52 Attending physician: Kolton Villalpando MD Time Spent in preparation of Discharge (in minutes): 25 Diagnosis - Discharge Diagnosis (1) Swelling of left side of face Status: Acute (2) Dental abscess Status: Acute (3) Facial cellulitis Status: Acute (4) Pruritic rash Status: Acute Hospital Course - Lab Results Lab Results: Most Recent Lab Values WBC 8.6 10^3/ul (4.5-11.0) D 08/03/17 06:15 RBC 3.10 10^6/uL (3.5-6.1) L 08/03/17 06:15 Hgb 8.8 g/dL (12.0-16.0) L 08/03/17 06:15 Hct 27.0 % (36.0-48.0) L 08/03/17 06:15 MCV 87.1 fl (80.0-105.0) 08/03/17 06:15 MCH 28.4 pg (25.0-35.0) 08/03/17 06:15 MCHC 32.6 g/dl (31.0-37.0) 08/03/17 06:15 RDW 15.9 % (11.5-14.5) H 08/03/17 06:15 Plt Count 231 10^3/uL (120.0-450.0) 08/03/17 06:15 MPV 10.9 fl (7.0-11.0) 08/03/17 06:15 Gran % 51.1 % (50.0-68.0) 08/03/17 06:15 Lymph % (Auto) 38.0 % (22.0-35.0) H 08/03/17 06:15 [place] % (Auto) 9.5 % (1.0-6.0) H 08/03/17 06:15 Eos % (Auto) 1.2 % (1.5-5.0) L 08/03/17 06:15 Baso % (Auto) 0.2 % (0.0-3.0) 08/03/17 06:15 Gran # 4.37 (1.4-6.5) 08/03/17 06:15 Lymph # (Auto) 3.3 (1.2-3.4) 08/03/17 06:15 [place] # (Auto) 0.8 (0.1-0.6) H 08/03/17 06:15 Eos # (Auto) 0.1 (0.0-0.7) 08/03/17 06:15 Baso # (Auto) 0.02 K/mm3 (0.0-2.0) 08/03/17 06:15 PT 12.1 SECONDS (9.4-12.5) 08/02/17 21:34 INR 1.06 (0.93-1.08) 08/02/17 21:34 APTT 21.5 Seconds (25.1-36.5) L 08/02/17 21:34 Sodium 142 mmol/L (132-148) 08/03/17 06:15 Potassium 3.2 mmol/L (3.6-5.0) L 08/03/17 06:15 Chloride 107 mmol/L (98-107) 08/03/17 06:15 Carbon Dioxide 23 mmol/L (21-33) 08/03/17 06:15 Anion Gap 15 (10-20) 08/03/17 06:15 BUN 8 mg/dL (7-21) 08/03/17 06:15 Creatinine 0.6 mg/dl (0.7-1.2) L 08/03/17 06:15 Est GFR ( Amer) > 60 08/03/17 06:15 Est GFR (Non-Af Amer) > 60 08/03/17 06:15 Random Glucose 77 mg/dL (70-110) 08/03/17 06:15 Calcium 8.4 mg/dL (8.4-10.5) 08/03/17 06:15 Total Bilirubin 0.4 mg/dL (0.2-1.3) 08/03/17 06:15 AST 15 U/L (14-36) 08/03/17 06:15 ALT 19 U/L (7-56) 08/03/17 06:15 Alkaline Phosphatase 57 U/L (38-126) 08/03/17 06:15 Total Protein 6.7 g/dL (5.8-8.3) 08/03/17 06:15 Albumin 3.8 g/dL (3.0-4.8) 08/03/17 06:15 Globulin 2.9 gm/dL 08/03/17 06:15 Albumin/Globulin Ratio 1.3 (1.1-1.8) 08/03/17 06:15 Procalcitonin < 0.05 NG/ML (0.19-0.49) L 08/03/17 06:15 - Hospital Course Hospital Course: Patient is a 42 year old female with past medical history who presented to [facility] ED with left sided facial swelling for a 24 hour h Discharge Exam - Head Exam Head Exam: NORMOCEPHALIC Discharge Plan - Discharge Medications Prescriptions: Amoxicillin/Clavulanate [Augmentin 875 MG-125 MG] 1 tab PO BID 5 Days tab - Follow Up Plan Condition: FAIR Disposition: HOME/ ROUTINE
== END 2017-08-03 17:34 | disposition left against medical advice (07) | DRG 278 ==
LOC: ED 20:23 → ERH 21:52 → 5RNO 23:09
PROVIDERS: ADMIT Hospitalist; ATTEND Internal Medicine
DX: L03.211 Cellulitis of face (principal); K04.7 Periapical abscess without sinus; L29.9 Pruritus, unspecified; R21 Rash and other nonspecific skin eruption; Z83.3 Family history of diabetes mellitus; F17.210 Nicotine dependence, cigarettes, uncomplicated